=== PATIENT | female | born 1995 | race Hispanic/Latino ===

== ENCOUNTER 2017-03-23 22:10 | Emergency (ER) | payer OTHER ==
[2017-03-23 22:30] LABS: Bilirubin Negative (Negative); Blood, Urine Large (Negative); Glucose, Urine (Dipstick) Negative (Negative); Ketone, Urine Negative (Negative); Nitrite Negative (Negative); Protein, Urine (Dipstick) Trace mg/dL (Neg-Trace); Urobilinogen 0.2 mg/dL (0.2-1.0)
[2017-03-23 22:31] LABS: Bacteria/HPF 1+ HPF (None Seen); Hyaline Casts/LPF 0-3 HYALINE CAST LPF (0-3 Hyaline); RBC/HPF GREATER THAN 50-TNTC HPF (0-3)
[2017-03-23 23:19] LABS: #Basophils 0.1 thou/uL (0.0-0.2); #Eosinphils 0.2 thou/uL (0.0-0.7); #Lymphocytes 3.5 thou/uL (1.20-3.40); #Monocytes 0.6 thou/uL (0.11-0.59); #Neutrophils 6.7 thou/uL (1.40-6.50); %Eosinophils 2.1 % (0.0-10.0); %Lymphocytes 31.2 % (21.0-51.0); %Monocytes 5.5 % (0.0-10.0); Hematocrit 41.9 % (36.0-47.0); Mean Platelet Volume 7.1 fL (7.4-10.4); Red Blood Cell (RBC) Count 4.49 mill/uL (4.20-5.40); White Blood Cell (WBC) Count 11.2 thou/uL (4.8-10.8)
[2017-03-23 23:39] LABS: ALT (SGPT) 31 U/L (8-55); AST (SGOT) 27 U/L (5-34); Alkaline Phosphatase 95 U/L (40-150); Anion Gap 12 mmol/L (10-20); BUN (Urea Nitrogen) 8 mg/dL (7.0-18.7); Bilirubin, Total 0.3 mg/dL (0.2-1.2); Calc. Creatinine Clearance 0 mL/min (70-130); Calcium 9.5 mg/dL (7.8-10.44); Carbon Dioxide 28 mmol/L (22-29); Chloride 102 mmol/L (98-107); Estimated GFR-MDRD Greater than 90; Globulin 3.3 g/dL (2.4-3.5); Protein, Total 7.7 g/dL (6.0-8.3)
--- NOTE | 2017-03-24 00:01 | ULT ---
FIRST TRIMESTER OBSTETRICAL ULTRASOUND: Indication: Vaginal bleeding with clots; reportedly 7 weeks . FINDINGS: Uterus measures 9.7 x 5.0 x 4.7 cm. There is prominent thickening of the endometrial stripe measuring 2.4 cm. No vascularized endometrial material is evident. No intrauterine gestation is demonstrated. No free fluid is noted. The right ovary measures 3.7 x 1.6 x 1.7 cm. The left ovary measures 2.6 x 1. 3 x 1.8 cm. IMPRESSION: Thickend endometrial stripe without visible intrauterine gestation. Some of the echogencity within th e endometrial canal may reflect hemorrhagic blood products. Findings may reflect sequellae of missed , ectopic or early . Imaging follow up is recommended. POS: TOYIN
== END 2017-03-24 00:48 | disposition home or self-care (01) ==
LOC: ERS 22:10
DX: O03.9 Complete or unspecified spontaneous abortion without complication (principal)
CPT/HCPCS: 36415; 76856; 80053; 81003; 81015; 81025; 84702; 85025; 86900; 86901; 87086

== ENCOUNTER 2018-05-12 02:08 | Inpatient (IN) | payer OTHER ==
[2018-05-12 02:40] VITALS: BMI 45.6
[2018-05-12 02:57] LABS: Amnisure Internal Control QC ACCEPTABLE (ACCEPTABLE)
[2018-05-12 03:05] LABS: Amnisure Test RUPTURE DETECTED (No Rupture)
[2018-05-12] MEDS: Lactated Ringer's 1,000 ML IV SCH ×3 (03:30→09:33)
[2018-05-12] MEDS ORDERED: NS / Oxytocin 40 units/1000ml 1,000 ML IV PRN (03:43)
[2018-05-12] MEDS ORDERED: Ondansetron PF 4 MG/2 ML Vial IVP PRN ×3 (03:43→12:01)
[2018-05-12] MEDS ORDERED: Lidocaine 1% (PF) 30 ML VIAL SC PRN (03:43)
[2018-05-12] MEDS ORDERED: Ibuprofen 800 MG TAB PO PRN (03:43)
[2018-05-12] MEDS ORDERED: HYDROcodone/Acetaminophen 5/325 mg Tablet PO PRN ×2 (03:43)
[2018-05-12] MEDS ORDERED: Butorphanol Tartrate 1 MG/ML VIAL SLOW IVP PRN (03:43)
[2018-05-12] MEDS ORDERED: Lactated Ringer's 1,000 ML IV SCH (03:45)
[2018-05-12 03:57] LABS: Mean Corpuscular HGB CONC 32.4 g/dL (32.0-36.0); Mean Corpuscular Hemoglobin 26.3 pg (27.0-31.0); Mean Platelet Volume 9.4 fL (7.4-10.4); Platelet Count 293 thou/uL (130-400); RBC Distribution Width 14.4 % (11.5-14.5); Red Blood Cell (RBC) Count 4.17 mill/uL (4.20-5.40); White Blood Cell (WBC) Count 11.7 thou/uL (4.8-10.8)
[2018-05-12 04:36] LABS: HBSAg Index 0.18 S/CO (0-0.99); Hep B Surf Ag Non-Reactive S/CO (NonReactive)
[2018-05-12] MEDS ORDERED: Fentanyl 4 mcg/Bup 0.1% Cadd 100 ML ONE (04:45)
[2018-05-12] MEDS ORDERED: Lidocaine 1.5% w/Epi 1:200K 30 ML VIAL (Epid Use) ONE (04:45)
[2018-05-12 04:58] LABS: Syphilis Antibody Nonreactive (Nonreactive); Syphilis Antibody Index 0.05 S/CO (<1.00 Non-Reactive)
[2018-05-12] MEDS ORDERED: Lactated Ringer's 500 ML IV PRN (05:04)
[2018-05-12] MEDS ORDERED: ePHEDrine/0.9% NaCl/PF SYRINGE 50 mg/10 ml SLOW IVP PRN (05:04)
[2018-05-12] MEDS ORDERED: Promethazine HCl 25 MG/ML VIAL IM PRN (05:04)
[2018-05-12] MEDS ORDERED: Naloxone HCl 0.4 mg/ml Vial IVP PRN ×2 (05:04)
[2018-05-12] MEDS ORDERED: Eucerin (Mineral Oil/Petrolatum,White) 30 gm Jar TOP PRN (05:04)
[2018-05-12] MEDS ORDERED: diphenhydrAMINE 50 MG/ML VIAL IVP PRN (05:04)
[2018-05-12] MEDS ORDERED: Acetaminophen 325 MG TAB PO PRN (05:04)
[2018-05-12] MEDS ORDERED: Communication Order-Pharmacy FS SCH (05:15)
[2018-05-12] MEDS: Fentanyl 4 mcg/Bupivacaine 0.1% Cassette 100 ML EPIDURAL SCH ×2 (05:24→10:59)
[2018-05-12] MEDS ORDERED: NS w/ Oxytocin 10 units 500 ML ONE (06:43)
[2018-05-12] MEDS ORDERED: NS w/ Oxytocin 10 units 500 ML IVPB SCH (07:45)
--- NOTE | 2018-05-12 11:27 | PDOC.EVN ---
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 Patiuent of Yosvany Gonzalez See my previous annotation as well, in QS about 1 hour ago Patient is a multip with variable decels...good variability. I suspect nuchal cord. Good scalp stil response by me at 1122...C/C/+2, cephalic. I evaluated her at bedside...cruz out; JERRELL in use... Dr Lisa andrea now
[2018-05-12] MEDS: NS / Oxytocin 40 units/1000ml 1,000 ML IV SCH ×2 (11:37→12:15)
[2018-05-12] MEDS ORDERED: Preparation H Ointment 28 GM TUBE PR PRN (12:01)
[2018-05-12] MEDS ORDERED: Benzocaine/Menthol 20-0.5% 60 ML CAN TOP PRN (12:01)
[2018-05-12] MEDS ORDERED: Zolpidem Tartrate 5 MG TAB PO PRN (12:01)
[2018-05-12] MEDS ORDERED: Lanolin Ointment 7 GM TUBE TOP PRN (12:01)
[2018-05-12] MEDS ORDERED: Adacel (T-DAP) 0.5 ML SYRINGE IM ONE (12:01)
[2018-05-12] MEDS ORDERED: diphenhydrAMINE 25 MG CAP PO PRN (12:01)
[2018-05-12] MEDS ORDERED: Milk Of Magnesia 30 ML UDCUP PO PRN (12:01)
[2018-05-12] MEDS ORDERED: Bisacodyl 10 MG SUPP PR PRN (12:01)
[2018-05-12] MEDS ORDERED: Misoprostol 200 MCG TAB VAG PRN (12:01)
[2018-05-12 12:16] LABS: Actual Bicarbonate (HCO3a) 21.9 mEq/L (22-28); Analyzer IN Cardio OR; Base Excess (BEa) -5.6 mEq/L (-2.0 to +3.0)
[2018-05-12] MEDS: Ferrous Sulfate 325 MG TAB PO SCH (15:31)
[2018-05-12] MEDS: Acetaminophen/Codeine 30-300mg Tablet PO PRN ×2 (15:34→19:36)
[2018-05-12] MEDS ORDERED: Ibuprofen 800 MG TAB PO SCH (21:45)
[2018-05-12] MEDS: Docusate Calcium (SURFAK) 240 MG CAP PO SCH (21:48)
[2018-05-13] MEDS: Ibuprofen 800 MG TAB PO SCH ×3 (05:40→22:12)
[2018-05-13 07:10] LABS: Hemoglobin 9.8 g/dL (12.0-16.0); Mean Corpuscular HGB CONC 32.1 g/dL (32.0-36.0); Mean Corpuscular Hemoglobin 26.5 pg (27.0-31.0); Mean Corpuscular Volume 82.5 fL (78.0-98.0); Mean Platelet Volume 9.1 fL (7.4-10.4); Platelet Count 246 thou/uL (130-400); RBC Distribution Width 14.8 % (11.5-14.5); Red Blood Cell (RBC) Count 3.69 mill/uL (4.20-5.40); White Blood Cell (WBC) Count 12.6 thou/uL (4.8-10.8)
[2018-05-13] MEDS: Prenatal Vitamin 1 TAB PO SCH (08:50)
[2018-05-13] MEDS: Docusate Calcium (SURFAK) 240 MG CAP PO SCH ×2 (08:50→22:12)
[2018-05-13] MEDS: Ferrous Sulfate 325 MG TAB PO SCH ×2 (08:50→17:10)
[2018-05-13] MEDS: Acetaminophen/Codeine 30-300mg Tablet PO PRN ×2 (12:12→18:31)
[2018-05-14] MEDS: Acetaminophen/Codeine 30-300mg Tablet PO PRN ×2 (03:54)
[2018-05-14] MEDS: Ibuprofen 800 MG TAB PO SCH (06:05)
[2018-05-14 08:03] VITALS: BP 128/77; TEMP 98.1
[2018-05-14] MEDS: Ferrous Sulfate 325 MG TAB PO SCH (08:49)
[2018-05-14] MEDS: Prenatal Vitamin 1 TAB PO SCH (08:49)
[2018-05-14] MEDS: Docusate Calcium (SURFAK) 240 MG CAP PO SCH (08:49)
[2018-05-14] MEDS ORDERED: Measles/Mumps/Rubella 10 MCG/0.5 ML VIAL SC ONE (09:30)
== END 2018-05-14 11:35 | disposition home or self-care (01) | DRG 807 ==
LOC: L&D/OP 02:08 → L&D 03:10 → 3SW 14:39
PROVIDERS: ADMIT Obstetrics & Gynecology; ATTEND Obstetrics & Gynecology
PROC: 10D07Z6 Extraction of Products of Conception, Vacuum, Via Natural or Artificial Opening (ICD-10-PCS; principal; 2018-05-12)
DX: O48.0 Post-term pregnancy (principal); Z37.0 Single live birth; Z3A.41 41 weeks gestation of pregnancy; O76 Abnormality in fetal heart rate and rhythm complicating labor and delivery
CPT/HCPCS: 36415; 51702; 82805; 84112; 85027; 86780; 86850; 86900; 86901; 87340; 90471; 90686; 90707; 90715; 99285; G0008; J0595; J2001

== ENCOUNTER 2020-10-08 12:43 | Inpatient (IN) | payer OTHER, SELFPAY ==
[~2020-10-08 12:43] MED LIST: Iopamidol-370 76% 500 ML 1 ML ONE
[2020-10-08 14:25] LABS: #Basophils 0.1 thou/uL (0.0-0.2); #Lymphocytes 1.6 thou/uL (1.20-3.40); #Monocytes 1.3 thou/uL (0.11-0.59); #Neutrophils 11.9 thou/uL (1.40-6.50); %Basophils 0.5 % (0.0-1.0); %Eosinophils 0.1 % (0.0-10.0); %Lymphocytes 10.9 % (21.0-51.0); %Monocytes 8.7 % (0.0-10.0); %Neutrophils 79.9 % (42.0-75.0); Hemoglobin 14.8 g/dL (12.0-16.0); Mean Corpuscular HGB CONC 32.9 g/dL (32.0-36.0); Mean Corpuscular Hemoglobin 31.9 pg (27.0-31.0); Mean Corpuscular Volume 96.9 fL (78.0-98.0); Mean Platelet Volume 8.1 fL (7.4-10.4); Platelet Count 283 thou/uL (130-400); RBC Distribution Width 11.8 % (11.5-14.5); Red Blood Cell (RBC) Count 4.64 mill/uL (4.20-5.40); White Blood Cell (WBC) Count 14.9 thou/uL (4.8-10.8)
[2020-10-08] MEDS ORDERED: Acetaminophen 500 MG TAB ONE (14:26)
[2020-10-08] MEDS ORDERED: Pantoprazole 40 MG VIAL ONE (14:26)
[2020-10-08] MEDS ORDERED: Ondansetron PF 4 MG/2 ML Vial ONE ×2 (14:26→16:03)
[2020-10-08 14:34] LABS: Bacteria/HPF 2+ HPF (None Seen); Bilirubin 1+ (Negative); Blood, Urine 2+ (Negative); Clarity Turbid (Clear); Glucose, Urine (Dipstick) Normal (Negative); Ketone, Urine Negative (Negative); Leukocyte 75 Leu/uL (Negative); Nitrite Negative (Negative); Protein, Urine (Dipstick) 600 mg/dL (Neg-Trace); RBC/HPF 21-50 HPF (0-3); Specific Gravity, Urine 1.031 (1.002-1.036); Urobilinogen Greater than 12 mg/dL (Less than 2); WBC/HPF 21-50 HPF (0-3)
[2020-10-08 14:35] LABS: Pregnancy Test - Urine (BHCG) Negative (Negative); Pregu Control Background? CLEAR/WHITE (CLR/WHITE); Pregu Control Bar Appear? YES (CONTROL BAR); Specific Gravity 1.031 (1.002-1.036)
[2020-10-08 14:47] LABS: ALT (SGPT) 126 U/L (8-55); AST (SGOT) 116 U/L (5-34); Albumin 4.3 g/dL (3.5-5.0); Alkaline Phosphatase 112 U/L (40-110); Anion Gap 16 mmol/L (10-20); BUN (Urea Nitrogen) 15 mg/dL (7.0-18.7); Bilirubin, Total 1.3 mg/dL (0.2-1.2); Calc. Creatinine Clearance 0 mL/min (70-130); Calcium 9.4 mg/dL (7.8-10.44); Carbon Dioxide 24 mmol/L (22-29); Chloride 97 mmol/L (98-107); Globulin 4.5 g/dL (2.4-3.5); Glucose 141 mg/dL (70-105); Lipase Less than 4 U/L (8-78); Potassium 3.4 mmol/L (3.5-5.1); Protein, Total 8.8 g/dL (6.0-8.3); Sodium 134 mmol/L (136-145)
[2020-10-08] MEDS ORDERED: Morphine 4 MG/ML VIAL ONE (15:57)
[2020-10-08 17:12] LABS: Amphetamine Not Detected (NotDetected); Barbiturates Screen Not Detected (NotDetected); Benzodiazepine Screen Not Detected (NotDetected); Cocaine Metabolite Screen Not Detected (NotDetected); Medtox Control Line Valid? VALID (VALID); Medtox Reader # READER 4; Methadone Not Detected (NotDetected); Methamphetamine Not Detected (NotDetected); Opiate Screen Not Detected (NotDetected); Oxycodone Screen Not Detected (NotDetected); Phencyclidine (PCP) Not Detected (NotDetected); THC/Cannabinoid Screen Detected (NotDetected); Tricyclic Screen Not Detected (NotDetected)
[2020-10-08 17:16] LABS: MONO NEGATIVE CONTROL ZONE White (Negative) (White); MONO POSITIVE CONTROL Pink Line (Positive) (PINK/RED); Mononucleosis NEGATIVE (NEGATIVE)
[2020-10-08] MEDS ORDERED: Acetaminophen 325 MG TAB PO PRN (17:25)
[2020-10-08] MEDS ORDERED: Ondansetron ODT 4 MG TAB PO PRN (17:25)
[2020-10-08 17:27] LABS: Alcohol Less than 10 mg/dL (Less than 10)
[2020-10-08 17:30] LABS: Alcohol Less than 10 mg/dL (Less than 10); Salicylate Less than 8.0 mg/dL (15.0-30.0)
[2020-10-08] MEDS ORDERED: Sodium Chloride 0.9% 1,000 ML IV SCH ×2 (17:30)
[2020-10-08 17:31] LABS: ALT (SGPT) 109 U/L (8-55); AST (SGOT) 90 U/L (5-34); Albumin 3.7 g/dL (3.5-5.0); Alkaline Phosphatase 98 U/L (40-110); Bilirubin, Direct 0.7 mg/dL (0.1-0.3); Protein, Total 7.4 g/dL (6.0-8.3)
[2020-10-08] MEDS ORDERED: Piperacillin/Tazobactam 3.375 GM VIAL ONE (17:34)
[2020-10-08] MEDS ORDERED: Morphine 2 MG/ML VIAL SLOW IVP PRN (17:55)
[2020-10-08] MEDS: Piperacillin/Tazobactam 3.375 GM in Sodium Chloride 0.9% 100 ML IVPB SCH (19:50)
[2020-10-08] MEDS: Famotidine/PF 20 mg/2ml Vial SLOW IVP SCH (19:50)
[2020-10-08 19:56] VITALS: BMI 50.8
[2020-10-08] MEDS: NS 0.9% w/ 20 MEQ KCL 1,000 ML/1,000 ML BAG IV SCH (19:57)
[2020-10-08] MEDS: Famotidine 20 MG TAB PO SCH (20:09)
[2020-10-08] MEDS: Ondansetron PF 4 MG/2 ML Vial IVP PRN (20:13)
[2020-10-08 20:18] LABS: Cardiac Risk 6.3 (Less than 4.5)
[2020-10-08 20:41] LABS: HBCM Index 0.06 S/CO (0-0.79); HBSAg Index 0.23 S/CO (0-0.99); Hep A IgM AB Non-Reactive (NonReactive); Hep A IgM S/CO 0.15 S/CO (0-0.79); Hep B Surf Ag Non-Reactive S/CO (NonReactive); Hep C IgG Ab Non-Reactive (NonReactive); Hep C Index 0.04 S/CO (0-0.79); Hepatitis B Core IgM Abs Non-Reactive (NonReactive)
[2020-10-09] MEDS: Piperacillin/Tazobactam 3.375 GM in Sodium Chloride 0.9% 100 ML IVPB SCH ×3 (00:40→12:17)
[2020-10-09] MEDS: Ondansetron PF 4 MG/2 ML Vial IVP PRN ×2 (01:59→08:05)
[2020-10-09] MEDS: NS 0.9% w/ 20 MEQ KCL 1,000 ML/1,000 ML BAG IV SCH ×4 (02:00→17:28)
[2020-10-09 06:25] LABS: #Basophils 0.1 thou/uL (0.0-0.2); #Lymphocytes 2.3 thou/uL (1.20-3.40); #Monocytes 1.3 thou/uL (0.11-0.59); #Neutrophils 6.8 thou/uL (1.40-6.50); %Basophils 0.5 % (0.0-1.0); %Eosinophils 0.4 % (0.0-10.0); %Lymphocytes 21.8 % (21.0-51.0); %Monocytes 12.5 % (0.0-10.0); %Neutrophils 64.9 % (42.0-75.0); Hemoglobin 12.4 g/dL (12.0-16.0); Mean Corpuscular HGB CONC 32.5 g/dL (32.0-36.0); Mean Corpuscular Volume 98.4 fL (78.0-98.0); Platelet Count 247 thou/uL (130-400); RBC Distribution Width 11.7 % (11.5-14.5); Red Blood Cell (RBC) Count 3.88 mill/uL (4.20-5.40); White Blood Cell (WBC) Count 10.5 thou/uL (4.8-10.8)
[2020-10-09 06:49] LABS: Lipase 13 U/L (8-78); Phosphorus 2.1 mg/dL (2.3-4.7)
[2020-10-09 06:54] LABS: ALT (SGPT) 138 U/L (8-55); AST (SGOT) 109 U/L (5-34); Albumin 3.4 g/dL (3.5-5.0); Alkaline Phosphatase 94 U/L (40-110); Anion Gap 13 mmol/L (10-20); BUN (Urea Nitrogen) 10 mg/dL (7.0-18.7); Calc. Creatinine Clearance 208 mL/min (70-130); Calcium 7.8 mg/dL (7.8-10.44); Carbon Dioxide 21 mmol/L (22-29); Chloride 108 mmol/L (98-107); Globulin 3.2 g/dL (2.4-3.5); Glucose 103 mg/dL (70-105); Magnesium 2.1 mg/dL (1.6-2.6); Potassium 3.9 mmol/L (3.5-5.1); Protein, Total 6.6 g/dL (6.0-8.3); Sodium 138 mmol/L (136-145)
[2020-10-09] MEDS: Famotidine 20 MG TAB PO SCH (07:38)
[2020-10-09] MEDS: Famotidine/PF 20 mg/2ml Vial SLOW IVP SCH ×2 (07:52→20:28)
[2020-10-09] MEDS ORDERED: Potassium Phosphate 15 MMOL in Sodium Chloride 0.9% 250 ML 250 ML IVPB SCH (08:45)
[2020-10-09 10:53] LABS: SARS-CoV-2 PCR by NAA Not Detected (NotDetected)
[2020-10-09] MEDS ORDERED: Dicyclomine 10 MG CAP PO PRN (16:59)
[2020-10-09] MEDS: cefTRIAXone\\ROCEPHIN 2 GM in Sodium Chloride 0.9% 100 ML IVPB SCH (17:52)
[2020-10-09] MEDS ORDERED: Ibuprofen 200 MG TAB PO PRN (20:13)
[2020-10-09] MEDS: Enoxaparin Sodium 40 MG/0.4 ML SYRINGE SC SCH (20:27)
[2020-10-10] MEDS: NS 0.9% w/ 20 MEQ KCL 1,000 ML/1,000 ML BAG IV SCH ×3 (04:21→17:24)
[2020-10-10 06:14] LABS: #Basophils 0.1 thou/uL (0.0-0.2); #Eosinphils 0.2 thou/uL (0.0-0.7); #Lymphocytes 2.8 thou/uL (1.20-3.40); #Monocytes 0.9 thou/uL (0.11-0.59); #Neutrophils 5.2 thou/uL (1.40-6.50); %Basophils 0.8 % (0.0-1.0); %Eosinophils 2.7 % (0.0-10.0); %Lymphocytes 30.5 % (21.0-51.0); %Monocytes 9.7 % (0.0-10.0); %Neutrophils 56.3 % (42.0-75.0); Hemoglobin 12.5 g/dL (12.0-16.0); Mean Corpuscular Hemoglobin 32.5 pg (27.0-31.0); Mean Corpuscular Volume 98.4 fL (78.0-98.0); Mean Platelet Volume 7.6 fL (7.4-10.4); Platelet Count 267 thou/uL (130-400); RBC Distribution Width 11.9 % (11.5-14.5); Red Blood Cell (RBC) Count 3.85 mill/uL (4.20-5.40); White Blood Cell (WBC) Count 9.2 thou/uL (4.8-10.8)
[2020-10-10 06:43] LABS: ALT (SGPT) 145 U/L (8-55); AST (SGOT) 83 U/L (5-34); Albumin 3.5 g/dL (3.5-5.0); Alkaline Phosphatase 96 U/L (40-110); Anion Gap 13 mmol/L (10-20); BUN (Urea Nitrogen) 9 mg/dL (7.0-18.7); Bilirubin, Total 0.6 mg/dL (0.2-1.2); Calc. Creatinine Clearance 233 mL/min (70-130); Calcium 8.5 mg/dL (7.8-10.44); Carbon Dioxide 24 mmol/L (22-29); Chloride 106 mmol/L (98-107); Globulin 3.3 g/dL (2.4-3.5); Glucose 86 mg/dL (70-105); Phosphorus 2.3 mg/dL (2.3-4.7); Protein, Total 6.8 g/dL (6.0-8.3); Sodium 139 mmol/L (136-145)
[2020-10-10] MEDS: Famotidine/PF 20 mg/2ml Vial SLOW IVP SCH ×2 (08:09→21:18)
[2020-10-10] MEDS: Ondansetron PF 4 MG/2 ML Vial IVP PRN (13:30)
[2020-10-10] MEDS: Dicyclomine 10 MG CAP PO SCH ×2 (14:22→21:19)
[2020-10-10] MEDS: cefTRIAXone\\ROCEPHIN 2 GM in Sodium Chloride 0.9% 100 ML IVPB SCH (17:23)
[2020-10-10] MEDS: Enoxaparin Sodium 40 MG/0.4 ML SYRINGE SC SCH (21:19)
[2020-10-11] MEDS: NS 0.9% w/ 20 MEQ KCL 1,000 ML/1,000 ML BAG IV SCH (08:33)
[2020-10-11] MEDS: Dicyclomine 10 MG CAP PO SCH (08:33)
[2020-10-11] MEDS: Famotidine/PF 20 mg/2ml Vial SLOW IVP SCH (08:33)
[2020-10-11 08:53] VITALS: BP 110/72; TEMP 98.2
== END 2020-10-11 13:13 | disposition home or self-care (01) | DRG 872 ==
LOC: ERS 12:43 → T4-B 16:53
PROVIDERS: ADMIT Internal Medicine; ATTEND Internal Medicine
DX: A41.9 Sepsis, unspecified organism (principal); N10 Acute pyelonephritis; E87.1 Hypo-osmolality and hyponatremia; Z68.43 Body mass index [BMI] 50.0-59.9, adult; F32.9 Major depressive disorder, single episode, unspecified; E87.6 Hypokalemia; E83.39 Other disorders of phosphorus metabolism; E78.5 Hyperlipidemia, unspecified; F12.10 Cannabis abuse, uncomplicated; K76.0 Fatty (change of) liver, not elsewhere classified; E66.01 Morbid (severe) obesity due to excess calories; R65.20 Severe sepsis without septic shock; Z90.49 Acquired absence of other specified parts of digestive tract; Z90.89 Acquired absence of other organs; Z71.51 Drug abuse counseling and surveillance of drug abuser
CPT/HCPCS: 36415; 74177; 80053; 80061; 80074; 80306; 80307; 81003; 81015; 81025; 82150; 83605; 83690; 83735; 84100; 85025; 86140; 86308; 87040; 87086; 87324; 87449; C9113; J0500; J0696; J1650; J2270; J2405; J2543; J3480; J3490; J7050; Q0162; Q9967; S0028; U0003; U0005